=== PATIENT | male | born 1980 | race Caucasian/White ===

== ENCOUNTER 2018-11-21 20:07 | Emergency (ER) | payer BC, OTHER ==
[~2018-11-21] VITALS: Ht 175.3 cm; Wt 90.7 kg
[~2018-11-21 20:07] MED LIST: ATEN25TA PO; AZIT500T2 PO; CEFU250T PO; GUAI600T86 PO; HYDR115S2 PO; LEVO750T9 PO; RT-ALBUINH IH
[2018-11-21 20:23] VITALS: BP 150/98
[2018-11-21] MEDS ORDERED: SULF1TAB35 PO (20:26)
[2018-11-21] MEDS ORDERED: METH4TAB PO (20:26)
--- NOTE | 2018-11-21 20:26 | ED Integumentary General ---
General Chief Complaint: Skin/Wound Problems Stated Complaint: BOIL OR BLISTER IN RT ARMPIT Nursing Triage Note: Patient advises that he has experienced abscesses in his armpit right and left for several years. He denies recent changes in deoderant of bath products and detergents. He advises he has previously. He advises the past 3-4 weeks areas under his right arm pit have become more concerning. Source: patient, spouse History of Present Illness Date Seen by Provider: Nov 21, 2018 Time Seen by Provider: 20:07 Initial Comments PT ARRIVES VIA POV FROM HOME C/O "BOIL" IN RIGHT ARMPIT, ALSO STARTED GETTING A SMALL ONE IN LEFT ARM PIT THIS EPISODE STARTED 3-4 DAYS AGO AND IS GETTING WORSE HAS BEEN HAVING THESE ISSUES FOR THE LAST 14 YEARS--ONLY OCCURS IN ARMPITS, AND USUALLY MORE OFTEN AND WORSE ON THE RIGHT. NEVER HAS OCCURRED IN GROIN OR BUTTOCKS AREAS, AND NO ABSCESSES ANYWHERE ELSE ON BODY HAS ONLY HAD TO HAVE I&D DONE ONE TIME, USUALLY WILL RUPTURE ON THEIR OWN AND USUALLY WHILE TAKING A HOT SHOWER PT STOPPED WEARING DEODORANT 10 YEARS AGO, BUT TRIED A NEW KIND ABOUT A MONTH AGO--STOPPED IT WHEN THIS EPISODE STARTED A FEW DAYS AGO LAST EPISODE WAS 6 MOTHS AGO, NO ANTIBIOTICS SINCE THEN STATES BACTRIM HELPS, BUT THEN THEY COME BACK LATER. STATES HE HAS BEEN TOLD IT IS FROM MRSA. HAS NOT BEEN REFERRED TO SURGEON OR TRANSMITTER CHIEF NO FEVER NO DRAINAGE AT THIS TIME NO STREAKS PCP: DR. CLINE Allergies and Home Medications Allergies Coded Allergies: No Known Drug Allergies (Unverified , 02/21/15) Home Medications Albuterol Sulfate 8.5 Gm Hfa.aer.ad, 8.5 GM IH Q4H PRN for COUGH Prescribed by: QUINCY LOZOYA on 02/21/15 181 Atenolol 25 Mg Tablet, 25 MG PO DAILY, (Reported) Azithromycin 500 Mg Tablet, 500 MG PO DAILY Prescribed by: JIGAR RUFF on 02/24/15 135 Cefuroxime Axetil 250 Mg Tablet, 250 MG PO BID Prescribed by: JIGAR RUFF on 02/24/15 135 Guaifenesin 600 Mg Tab.er.12h, 600 MG PO BID Prescribed by: QUINCY LOZOYA on 02/21/15 181 Hydrocodone/Chlorphen P-Stirex 480 Ml [place].er.12h, 5 ML PO Q12H PRN for COUGH Prescribed by: JIGAR RUFF on 02/24/15 1350 Levofloxacin 750 Mg Tablet, 750 MG PO DAILY Prescribed by: QUINCY LOZOYA on 02/21/151815 Methylprednisolone 4 Mg Tab.ds.pk, 4 MG PO UD Prescribed by: JOSTIN GARRISON on 11/21/182025 Sulfamethoxazole/Trimethoprim 1 Each Tablet, 2 EACH PO BID Prescribed by: JOSTIN GARRISON on 11/21/182025 Patient Home Medication List Home Medication List Reviewed: Yes Review of Systems Review of Systems Constitutional: no symptoms reported Musculoskeletal: see HPI Skin: see HPI Psychiatric/Neurological: No Symptoms Reported Past Xcidbea-[id number]-Dbdopt Hx Patient Social History Alcohol Use: Denies Use Recreational Drug Use: No Smoking Status: Current Everyday Smoker (1 1/2 PPD) Type Used: Cigarettes Recent Foreign Travel: No Contact w/Someone Who Travel: No Recent Infectious Disease Expo: No Recent Hopitalizations: No Immunizations Up To Date Tetanus Booster (TDap): Less than 5yrs Seasonal Allergies Seasonal Allergies: No Past Medical History Surgeries: Yes (I&D OF RIGHT AXILLARY ABSCESS X 1) Respiratory: No Cardiac: Yes (TACHYCARDIA) Hypertension Neurological: No Reproductive Disorders: No Genitourinary: No Gastrointestinal: No Musculoskeletal: No Endocrine: No HEENT: No Cancer: No Psychosocial: No Integumentary: Yes (HX MRSA--AXILLARY ABSCESSES/CELLULITIS; I&D X 1 OF RIGHT AXILLA) Blood Disorders: No Physical Exam Vital Signs Vital Signs - First Documented 11/21/18 20:17 Temp 99.6 Pulse 94 Resp 14 B/P (MAP) 150/98 (115) Pulse Ox 96 O2 Delivery Room Air Capillary Refill : Less Than 3 Seconds General Appearance: WD/WN, no apparent distress Extremities: normal range of motion, normal capillary refill Neurologic/Psychiatric: transit driver II-XII nml as tested, no motor/sensory deficits, alert, normal mood/affect Skin: normal color, warm/dry, other (LEFT AXILLA WITH A FEW SMALL AREAS OF ERYTHEMATOUS PAPULES/INFLAMED FOLLICLES--2-3 MM DIAMETER. ONE SPOT TO MEDIAL ASPECT OF AXILLA IS SLIGHTLY LARGER THAN THE OTHERS, BUT IS ONLY BB-SIZED, AND NOT POINTING OR FLUCTUANT. RIGHT AXILLA WITH 3X4 CM AREA OF CELLULITIS--INFLAMED, WARM, INDURATED AND VERY TENDER. NO FOCAL ABSCESS / FLUCTUANCE, NO POINTING, NO DRAINAGE, NO STREAKS. DOES HAVE FAIR AMOUNT OF SCAR TISSUE IN RIGHT AXILLA FROM PREVIOUS EPISODES. ) Progress/Results/Core Measures Results/Orders My Orders Orders - JOSTIN GARRISON DO Clindamycin Injection (Cleocin Injection (11/21/18 20:30) Ketorolac Injection (Toradol Injection) (11/21/18 20:30) Vital Signs/I&O 11/21/18 11/21/18 20:17 20:23 Temp 99.6 Pulse 94 94 Resp 14 14 B/P (MAP) 150/98 (115) 150/98 (115) Pulse Ox 96 96 O2 Delivery Room Air Room Air Blood Pressure Mean: 115 Departure Impression Primary Impression: Cellulitis of right axilla Additional Impression: POSSIBLE HYDRADENITIS Disposition: HOME, SELF-CARE Condition: Stable Departure-Patient Inst. Referrals: CLARITA KELLY DANIEL J MD (PCP/Family) Primary Care Physician Patient Instructions: Cellulitis (Skin Infection), Adult (DC), Hidradenitis Suppurativa, MRSA (DC) Add. Discharge Instructions: MOIST HEAT TO AREA AT 20 MINUTE INTERVALS DO NOT POKE, PICK AT OR SQUEEZE THE AREA TYLENOL AND MOTRIN NEEDED FOR PAIN FOLLOW UP WITH DR. KELLY, SURGEON, THIS WEEK FOR FURTHER CARE All discharge instructions reviewed with patient and/or family. Voiced understanding. Scripts Methylprednisolone (Medrol) 4 Mg Tab.ds.pk 4 MG PO UD, #1 PKG Prov: JOSTIN GARRISON DO 11/21/18 Sulfamethoxazole/Trimethoprim (Bactrim Ds Tablet) 1 Each Tablet 2 EACH PO BID, #40 TAB Prov: JOSTIN GARRISON DO 11/21/18 JOSTIN GARRISON DO Nov 21, 2018 20:26
[2018-11-21] MEDS ORDERED: KETOROLAC 60 MG/2 ML VIAL IM ONE (20:30)
[2018-11-21] MEDS ORDERED: CLINDAMYCIN 600 MG/4ML (CLEOCIN) VIAL IM ONE (20:30)
[2018-11-21] MEDS ORDERED: CLINDAMYCIN 600 MG/4ML (CLEOCIN) VIAL ONE (20:33)
== END 2018-11-21 21:14 | disposition home or self-care (01) ==
LOC: EDUNIT# 20:07 → ER 20:09
DX: L03.111 Cellulitis of right axilla (principal); I10 Essential (primary) hypertension; F17.210 Nicotine dependence, cigarettes, uncomplicated
CPT/HCPCS: 99284

== ENCOUNTER → 2020-03-07 | Outpatient (CLI) | payer OTHER ==
[~2020-03-07] MED LIST changes: +METH4TAB PO; +SULF1TAB35 PO
--- NOTE | 2020-03-07 15:19 | Diagnostic Imaging Report ---
INDICATION: LEFT SHOULDER PAIN TECHNIQUE: Three views of the left shoulder CORRELATION STUDY: None FINDINGS: The glenohumeral and acromioclavicular alignment are maintained and unremarkable. There is no evidence for acute fracture or dislocation. The visualized soft tissues are unremarkable. IMPRESSION: 1. Negative for acute bony abnormality about the shoulder. Dictated by: Dictated on workstation # [id number]
== END ==
LOC: RAD 14:42
PROVIDERS: ATTEND Family Medicine
DX: M25.512 Pain in left shoulder (principal)
CPT/HCPCS: 73030